=== PATIENT | female | born 1935 | race Caucasian/White ===

== ENCOUNTER 2020-03-21 10:03 | Day surgery (SDC) | payer MEDICARE, OTHER ==
[~2020-03-21] VITALS: Ht 165.1 cm; Wt 52.5 kg
[2020-03-21] VITALS (7 sets, daily range): BP systolic 132–167; BP diastolic 64–95
[2020-03-21] MEDS ORDERED: normal saline 1,000 ML IV SCH (10:35)
[2020-03-21] MEDS ORDERED: diphenhydrAMINE 25mg capsule PO PRN (10:35)
[2020-03-21 10:57] LABS: BASOPHILS % (AUTO) 0.7 % (0-1); EOSINOPHILS # (AUTO) 0.1 X10'3 (0-0.9); EOSINOPHILS % (AUTO) 1.1 % (0-6); HEMATOCRIT 39.7 % (35.0-45.0); HEMOGLOBIN 13.1 g/dl (12.0-16.0); LYMPHOCYTES % (AUTO) 35.2 % (21-51); MEAN CORPUSCULAR HEMOGLOBIN 31.6 PG (27.0-31.0); MEAN CORPUSCULAR HGB CONC 32.9 g/dL (33.0-36.5); MEAN CORPUSCULAR VOLUME 96.2 FL (78-98); MEAN PLATELET VOLUME 8.8 FL (7.4-10.4); MONOCYTES # (AUTO) 0.7 X10'3 (0-0.9); MONOCYTES % (AUTO) 11.8 % (2-12); NEUTROPHILS # (AUTO) 2.9 X10'3 (1.8-7.7); NEUTROPHILS % (AUTO) 51.2 % (42-75); PLATELET COUNT 232 X10'3 (140-440); RED BLOOD COUNT 4.13 X10'6 (4.20-5.60); RED CELL DISTRIBUTION WIDTH 13.1 % (11.5-14.5); WHITE BLOOD COUNT 5.7 X10'3 (4.5-11.0)
[2020-03-21 11:10] LABS: ANION GAP 9 (8-16); BLOOD UREA NITROGEN 13 MG/DL (7-18); BUN/CREATININE RATIO 12.4 (6.6-38.0); CALCIUM 9.1 MG/DL (8.5-10.1); CHLORIDE 104 MMOL/L (99-107); CREATININE 1.05 MG/DL (0.40-0.90); GLUCOSE 93 MG/DL (70-104); MAGNESIUM 1.7 MG/DL (1.5-2.4); SODIUM 142 MMOL/L (135-145); TOTAL CARBON DIOXIDE 28.8 MMOL/L (24-32); eGFR 50 ML/MIN
[2020-03-21] MEDS ORDERED: FAMO40TA73 PO (11:18)
[2020-03-21] MEDS ORDERED: FLUT50BL NAS (11:18)
[2020-03-21] MEDS ORDERED: BUDE10.2 INH (11:18)
[2020-03-21] MEDS ORDERED: WARF1TAB2 PO (11:18)
[2020-03-21] MEDS ORDERED: LISI-600 PO (11:18)
[2020-03-21] MEDS ORDERED: KEN0.1O TP (11:18)
[2020-03-21] MEDS ORDERED: FLEC50TA28 PO (11:18)
[2020-03-21] MEDS ORDERED: POTA10TA19 PO (11:18)
[2020-03-21] MEDS ORDERED: ATOR40TA PO (11:18)
[2020-03-21] MEDS ORDERED: ATOR40TA7 PO (11:18)
[2020-03-21] MEDS ORDERED: midazolam 2 mg/2 ml injection ONE (11:32)
[2020-03-21] MEDS ORDERED: LIDOcaine 1% W/epiNEPHrine 1:100,000 20ml vial ONE (11:33)
[2020-03-21] MEDS ORDERED: ceFAZolin 1000mg inj ONE (11:33)
[2020-03-21] MEDS ORDERED: vancomycin 1,000mg inj ONE (11:33)
[2020-03-21] MEDS ORDERED: fentaNYL/PF 50MCG/1 ML 2ML syringe ONE (11:33)
[2020-03-21] MEDS ORDERED: diphenhydrAMINE 50 mg/ml inj ONE (12:50)
== END 2020-03-21 15:20 | disposition home or self-care (01) ==
LOC: SSTAY O 10:03
PROVIDERS: ATTEND Internal Medicine Cardiovascular Disease
DX: T82.120A Displacement of cardiac electrode, initial encounter (principal); I48.0 Paroxysmal atrial fibrillation; I49.5 Sick sinus syndrome; I10 Essential (primary) hypertension; E78.5 Hyperlipidemia, unspecified; K21.9 Gastro-esophageal reflux disease without esophagitis; F34.1 Dysthymic disorder; J44.9 Chronic obstructive pulmonary disease, unspecified; F32.9 Major depressive disorder, single episode, unspecified; Z88.2 Allergy status to sulfonamides; Z88.8 Allergy status to other drugs, medicaments and biological substances; Z87.891 Personal history of nicotine dependence; Z98.890 Other specified postprocedural states; Z85.3 Personal history of malignant neoplasm of breast; Z79.899 Other long term (current) drug therapy; Y83.8 Other surgical procedures as the cause of abnormal reaction of the patient, or of later complication, without mention of misadventure at the time of the procedure; Y92.89 Other specified places as the place of occurrence of the external cause
CPT/HCPCS: 33222; 36415; 80048; 83735; 85025; 85610; 93005; 99152; 99153; J0690; J1200; J2250; J3010; J3370; J7030; J7050; Q0163; A4620

== ENCOUNTER 2020-03-24 10:00 | Emergency (ER) | payer MEDICARE, OTHER ==
[~2020-03-24] VITALS: Ht 165.1 cm; Wt 52.3 kg
[~2020-03-24 10:00] MED LIST: ATOR40TA PO; ATOR40TA7 PO; BUDE10.2 INH; FAMO40TA73 PO; FLEC50TA28 PO; FLUT50BL NAS; KEN0.1O TP; LISI-600 PO; POTA10TA19 PO; WARF1TAB2 PO
[2020-03-24] MEDS ORDERED: ondansetron/PF 4mg/2ml inj IV ONE (11:35)
[2020-03-24] MEDS ORDERED: morphine 4 MG/ML inj SYRINge IV PRN (11:35)
[2020-03-24] MEDS ORDERED: normal saline 1000ML IV soln IVB ONE (11:35)
[2020-03-24 12:21] LABS: BASOPHILS % (AUTO) 0.3 % (0-1); EOSINOPHILS % (AUTO) 0.3 % (0-6); HEMATOCRIT 37.4 % (35.0-45.0); HEMOGLOBIN 12.5 g/dl (12.0-16.0); LYMPHOCYTES # (AUTO) 1.2 X10'3 (1.1-4.8); LYMPHOCYTES % (AUTO) 13.5 % (21-51); MEAN CORPUSCULAR HGB CONC 33.3 g/dL (33.0-36.5); MONOCYTES # (AUTO) 1.3 X10'3 (0-0.9); NEUTROPHILS # (AUTO) 6.6 X10'3 (1.8-7.7); NEUTROPHILS % (AUTO) 71.9 % (42-75); PLATELET COUNT 223 X10'3 (140-440); RED CELL DISTRIBUTION WIDTH 12.7 % (11.5-14.5); WHITE BLOOD COUNT 9.2 X10'3 (4.5-11.0)
[2020-03-24 12:41] LABS: ALANINE AMINOTRANSFERASE 26 U/L (12-78); ALBUMIN 3.5 G/DL (3.4-5.0); ALBUMIN/GLOBULIN RATIO 0.9 (1.1-1.5); ALKALINE PHOSPHATASE 61 IU/L (46-116); ANION GAP 8 (8-16); ASPARTATE AMINO TRANSFERASE 31 U/L (10-37); BILIRUBIN,TOTAL 2.4 MG/DL (0.1-1.0); BLOOD UREA NITROGEN 9 MG/DL (7-18); BUN/CREATININE RATIO 12.7 (6.6-38.0); CALCIUM 8.8 MG/DL (8.5-10.1); CHLORIDE 102 MMOL/L (99-107); CREATININE 0.71 MG/DL (0.40-0.90); GLUCOSE 93 MG/DL (70-104); POTASSIUM 3.1 MMOL/L (3.5-5.1); SODIUM 140 MMOL/L (135-145); TOTAL CARBON DIOXIDE 29.6 MMOL/L (24-32); TOTAL PROTEIN 7.3 G/DL (6.4-8.2); eGFR 78 ML/MIN
[2020-03-24] MEDS ORDERED: OXYC-145 PO (13:42)
[2020-03-24 14:32] VITALS: BP 162/88
== END 2020-03-24 14:37 | disposition home or self-care (01) ==
LOC: ER 10:00
DX: G89.18 Other acute postprocedural pain (principal); M54.2 Cervicalgia; Z95.0 Presence of cardiac pacemaker; Z88.2 Allergy status to sulfonamides; Z88.5 Allergy status to narcotic agent; Z79.01 Long term (current) use of anticoagulants; Z79.899 Other long term (current) drug therapy
CPT/HCPCS: 36415; 70490; 71045; 71250; 80053; 83880; 84484; 84550; 85025; 93005; 96374; 96375; 99285; J2270; J2405; J7030

== ENCOUNTER 2020-06-25 12:02 | Emergency (ER) | payer MEDICARE, OTHER ==
[~2020-06-25] VITALS: Ht 165.1 cm; Wt 50.0 kg
[~2020-06-25 12:02] MED LIST changes: +OXYC-145 PO
[2020-06-25] MEDS ORDERED: AMOX500C2 PO (13:03)
[2020-06-25 13:30] VITALS: BP 176/85
== END 2020-06-25 13:32 | disposition home or self-care (01) ==
LOC: ER 12:03
DX: K08.89 Other specified disorders of teeth and supporting structures (principal); R68.84 Jaw pain; Z95.0 Presence of cardiac pacemaker; Z88.2 Allergy status to sulfonamides; Z79.899 Other long term (current) drug therapy
CPT/HCPCS: 99283

== ENCOUNTER 2020-08-16 06:15 | Outpatient (CLI) | payer MEDICARE, OTHER | END 2020-08-16 23:59 | disposition home or self-care (01) | LOC: RT 06:15 | PROVIDERS: ATTEND Internal Medicine Critical Care Medicine | DX: J44.9 Chronic obstructive pulmonary disease, unspecified (principal) | CPT/HCPCS: 94618 ==

== ENCOUNTER 2022-02-06 01:43 | Inpatient (IN) | payer MEDICARE, OTHER ==
[~2022-02-06] VITALS: Ht 170.2 cm; Wt 70.5 kg
[~2022-02-06 01:43] MED LIST changes: -LISI-600 PO; +LISI20TA28 PO; +POTA-192 PO; -POTA10TA19 PO
[2022-02-06 02:50] LABS: BASOPHILS # (AUTO) 0.1 X10'3 (0-0.2); BASOPHILS % (AUTO) 0.5 % (0-1); EOSINOPHILS # (AUTO) 0.1 X10'3 (0-0.9); HEMATOCRIT 37.5 % (35.0-45.0); HEMOGLOBIN 12.5 g/dl (12.0-16.0); LYMPHOCYTES # (AUTO) 1.3 X10'3 (1.1-4.8); LYMPHOCYTES % (AUTO) 12.9 % (21-51); MEAN CORPUSCULAR HGB CONC 33.4 g/dL (33.0-36.5); MEAN CORPUSCULAR VOLUME 95.7 FL (78-98); MEAN PLATELET VOLUME 8.6 FL (7.4-10.4); MONOCYTES % (AUTO) 10.4 % (2-12); NEUTROPHILS # (AUTO) 7.6 X10'3 (1.8-7.7); NEUTROPHILS % (AUTO) 75.2 % (42-75); PLATELET COUNT 237 X10'3 (140-440); RED BLOOD COUNT 3.92 X10'6 (4.20-5.60); WHITE BLOOD COUNT 10.1 X10'3 (4.5-11.0)
[2022-02-06 03:04] LABS: ALANINE AMINOTRANSFERASE 35 U/L (12-78); ALBUMIN 3.7 G/DL (3.4-5.0); ALKALINE PHOSPHATASE 62 IU/L (46-116); ANION GAP 8 (8-16); ASPARTATE AMINO TRANSFERASE 27 U/L (10-37); BLOOD UREA NITROGEN 13 MG/DL (7-18); BUN/CREATININE RATIO 16.5 (6.6-38.0); CALCIUM 9.4 MG/DL (8.5-10.1); CHLORIDE 101 MMOL/L (99-107); CREATININE 0.79 MG/DL (0.40-0.90); GLUCOSE 91 MG/DL (70-104); POTASSIUM 3.3 MMOL/L (3.5-5.1); SODIUM 137 MMOL/L (135-145); TOTAL CARBON DIOXIDE 27.6 MMOL/L (24-32); TOTAL PROTEIN 7.3 G/DL (6.4-8.2); eGFR 69 ML/MIN
[2022-02-06] MEDS ORDERED: ondansetron 4mg rapidly disintigrating tab PO ONE (03:05)
--- NOTE | 2022-02-06 03:08 | NUR ---
PT STATED SHE FEELS NAUSEOUS. INFORMED, AWAITING ORDERS
[2022-02-06 03:09] LABS: LIPASE 103 U/L (73-393)
--- NOTE | 2022-02-06 03:09 | NUR ---
PO MED GIVEN
[2022-02-06] MEDS ORDERED: IODIXANOL 320 MG/ML INFUS..BTL 100ML IV ONE (08:16)
[2022-02-06 08:39] LABS: CLARITY,URINE CLEAR (Clear); COLOR,URINE YELLOW (Yellow); GLUCOSE, URINE NEGATIVE (Neg); KETONES,URINE NEGATIVE (Neg); LEUKOCYTE ESTERASE ,URINE NEGATIVE (Neg); NITRITES, URINE NEGATIVE (Neg); OCCULT BLOOD,URINE NEGATIVE (Neg); PROTEIN,URINE NEGATIVE (Neg); UROBILINOGEN,URINE 0.2 E.U/dL (0.2-1.0)
[2022-02-06 08:44] LABS: UA COLLECTION TYPE CLN CATCH MIDSTREAM
--- NOTE | 2022-02-06 09:19 | NUR ---
patient received in bed [address] patient asleep at this time,call light within reach.
--- NOTE | 2022-02-06 14:20 | NUR ---
Paged Dr. dhaliwal bp high 192/78 hr 92.pt asymptomatic.
[2022-02-06] MEDS ORDERED: bisacodyl 10mg suppository rectal RC PRN (14:25)
[2022-02-06] MEDS ORDERED: acetaminophen 650mg rectal suppository RC PRN (14:25)
[2022-02-06] MEDS ORDERED: magnesium Cl slow-release 64mg tablet PO PRN (14:25)
[2022-02-06] MEDS ORDERED: morphine 2 MG/ML inj. syringe IV PRN (14:25)
[2022-02-06] MEDS ORDERED: POTASSIUM BICARB 20meq eff tab 20 MEQ TABLET.EFF PO PRN ×2 (14:25)
[2022-02-06] MEDS ORDERED: diphenhydrAMINE 25mg capsule PO PRN (14:25)
[2022-02-06] MEDS ORDERED: magnesium hydroxide 30ml (MOM) UD suspension PO PRN (14:25)
[2022-02-06] MEDS ORDERED: mag hydrox/Alum hydrox/simeth 30ml oral suspension PO PRN (14:25)
[2022-02-06] MEDS ORDERED: magnesium 4gm in 100ml NS 100 ML IV PRN (14:25)
[2022-02-06] MEDS ORDERED: ondansetron/PF 4mg/2ml inj IV PRN (14:25)
[2022-02-06] MEDS ORDERED: acetaminophen 325mg tablet PO PRN ×2 (14:25)
[2022-02-06] MEDS ORDERED: magnesium 2GM in 50ml NS 50 ML IV PRN (14:25)
[2022-02-06] MEDS ORDERED: potassium CL 10mEq/100ml bag 100 ML IV PRN (14:25)
[2022-02-06] MEDS ORDERED: hydrALAZINE 20mg/ml inj. IV ONE (14:35)
[2022-02-06] MEDS ORDERED: hydrALAZINE 20mg/ml inj. IV PRN (14:35)
[2022-02-06] MEDS: pantoprazole 40MG/NS 100ML BAG 100 ML IV SCH ×2 (14:48→20:53)
[2022-02-06] MEDS: normal saline 1000ml 1,000 ML IV SCH (14:48)
[2022-02-06 15:07] LABS: HEMOGLOBIN A1C 5.3 % (4.5-6.2)
[2022-02-06] MEDS ORDERED: APIX2.5T PO (15:22)
[2022-02-06] MEDS: cefTRIAXone 1g/NS 100ml IVPB 100 ML IV SCH (16:19)
[2022-02-06] MEDS: metroNIDAZOLE-Flagyl 500mg/NS 100 ML IV SCH (17:00)
[2022-02-06] MEDS ORDERED: mineral oil 133ml enema RC ONE (17:05)
--- NOTE | 2022-02-06 17:05 | NUR ---
visitor at bedside.
--- NOTE | 2022-02-06 19:20 | NUR ---
paged rt. for tx.
[2022-02-06] MEDS ORDERED: heparin, porcine 5000 units/ml vial SQ SCH (20:00)
[2022-02-06] MEDS ORDERED: non-formulary drug (Budesonide/Formoterol Fumarate (Symbicort 160-4.5 Mcg Inhaler) 2 PUFFS INH SCH (20:00)
[2022-02-06] MEDS: K and/or MAG REPLACEMENT MC SCH (20:00)
[2022-02-06] MEDS: budesonide 0.5mg/2ml UD nebule IH SCH (20:39)
[2022-02-06] MEDS: ipratropium/albuterol 3ml nebule NEB SCH ×2 (20:39→23:28)
[2022-02-06] MEDS: polyethylene glycol 3350 17gm powd pack PO SCH (20:53)
[2022-02-06] MEDS: docusate sod 100mg capsule PO SCH (20:53)
[2022-02-06] MEDS: apixaban 5mg tablet PO SCH (20:54)
[2022-02-06] MEDS: flecainide 50mg tablet PO SCH (20:57)
--- NOTE | 2022-02-06 21:10 | NUR ---
UPON CHECKING PT AND HER VITALS FOUND PT IN SVT AT A RATE OF 145. PT DENIES ANY CP, SOB, DIZZINESS OR ANY OTHER FACTORS. EKG TO BE PERFORMED. DR MCCALL PAGED WITH DETAILS.
--- NOTE | 2022-02-06 21:22 | NUR ---
EKG DONE, SHOWN TO DR PRIDE. PT PUT ON 2L NC. VAGAL MANEUVERS PERFORMED WITH NO EKG CHANGES.
--- NOTE | 2022-02-06 21:58 | NUR ---
PAGED DR MCCALL MULTIPLE TIMES, AWAITING CALL BACK. PT HR 135. PT IN NO SIGN OF DISTRESS AT THIS TIME.
--- NOTE | 2022-02-06 22:08 | NUR ---
PT CONVERTED FROM SVT TO NORMAL SINUS RYTHM WITHOUT INTERVENTION
--- NOTE | 2022-02-06 22:09 | NUR ---
PAGED DR MCCALL AGAIN TO NOTIFY OF PT SYMPTOMS AND RYTHM CHANGE. REPEAT EKG BEING PERFORMED
--- NOTE | 2022-02-06 22:10 | NUR ---
AWAITING RESPONSE FROM RUSU REGARDING FIRST PAGES
[2022-02-07] MEDS: metroNIDAZOLE-Flagyl 500mg/NS 100 ML IV SCH ×3 (00:27→16:19)
[2022-02-07] MEDS: normal saline 1000ml 1,000 ML IV SCH ×3 (01:06→21:24)
[2022-02-07 01:19] LABS: BASOPHILS % (AUTO) 0.5 % (0-1); EOSINOPHILS % (AUTO) 0.1 % (0-6); HEMATOCRIT 36.8 % (35.0-45.0); HEMOGLOBIN 12.2 g/dl (12.0-16.0); LYMPHOCYTES # (AUTO) 1.4 X10'3 (1.1-4.8); LYMPHOCYTES % (AUTO) 14.4 % (21-51); MEAN CORPUSCULAR HEMOGLOBIN 32.3 PG (27.0-31.0); MEAN CORPUSCULAR HGB CONC 33.1 g/dL (33.0-36.5); MEAN CORPUSCULAR VOLUME 97.6 FL (78-98); MEAN PLATELET VOLUME 8.3 FL (7.4-10.4); NEUTROPHILS # (AUTO) 7.4 X10'3 (1.8-7.7); PLATELET COUNT 221 X10'3 (140-440); RED BLOOD COUNT 3.77 X10'6 (4.20-5.60); RED CELL DISTRIBUTION WIDTH 13.4 % (11.5-14.5); WHITE BLOOD COUNT 9.8 X10'3 (4.5-11.0)
[2022-02-07 01:37] LABS: ALANINE AMINOTRANSFERASE 22 U/L (12-78); ALBUMIN 3.2 G/DL (3.4-5.0); ALKALINE PHOSPHATASE 58 IU/L (46-116); ANION GAP 7 (8-16); ASPARTATE AMINO TRANSFERASE 16 U/L (10-37); BILIRUBIN,TOTAL 1.8 MG/DL (0.1-1.0); BLOOD UREA NITROGEN 13 MG/DL (7-18); BUN/CREATININE RATIO 15.3 (6.6-38.0); CALCIUM 8.3 MG/DL (8.5-10.1); CHLORIDE 105 MMOL/L (99-107); CHOL/HDL RATIO 2.2 (0.00-4.99); CHOLESTEROL 157 MG/DL (0-200); CREATININE 0.85 MG/DL (0.40-0.90); GLUCOSE 108 MG/DL (70-104); HDL CHOLESTEROL 72 MG/DL (35-60); LDL CHOLESTEROL 64 MG/DL (50-100); MAGNESIUM 1.7 MG/DL (1.5-2.4); PHOSPHORUS 3.5 MG/DL (2.3-4.5); POTASSIUM 3.8 MMOL/L (3.5-5.1); SODIUM 140 MMOL/L (135-145); TOTAL CARBON DIOXIDE 27.8 MMOL/L (24-32); TOTAL PROTEIN 6.4 G/DL (6.4-8.2); TRIGLYCERIDES 73 MG/DL (20-135); eGFR 63 ML/MIN
--- NOTE | 2022-02-07 03:16 | NUR ---
paged rt. for scheduled breathing tx.
[2022-02-07] MEDS: ipratropium/albuterol 3ml nebule NEB SCH ×6 (03:28→23:26)
[2022-02-07] MEDS: budesonide 0.5mg/2ml UD nebule IH SCH ×2 (06:53→18:50)
[2022-02-07] MEDS: docusate sod 100mg capsule PO SCH ×2 (08:00→21:32)
[2022-02-07] MEDS: lisinopril 20mg tablet PO SCH (08:00)
[2022-02-07] MEDS: K and/or MAG REPLACEMENT MC SCH ×2 (08:00→20:00)
[2022-02-07] MEDS: pantoprazole 40MG/NS 100ML BAG 100 ML IV SCH ×2 (08:17→21:52)
[2022-02-07] MEDS: apixaban 5mg tablet PO SCH ×2 (08:17→21:32)
[2022-02-07] MEDS: atorvastatin 20mg tablet PO SCH (08:19)
[2022-02-07] MEDS: flecainide 50mg tablet PO SCH ×2 (08:46→22:02)
--- NOTE | 2022-02-07 10:22 | NUR ---
patient moved to hospital bed, made comfortable.
[2022-02-07] MEDS: cefTRIAXone 1g/NS 100ml IVPB 100 ML IV SCH (10:59)
[2022-02-07] MEDS: morphine 2 MG/ML inj. syringe IV PRN (10:59)
[2022-02-07] MEDS ORDERED: ondansetron 4mg rapidly disintigrating tab PO PRN (11:10)
[2022-02-07] MEDS ORDERED: FAMO20TA8 PO (13:39)
--- NOTE | 2022-02-07 20:45 | NUR ---
report received from ANALY Marques.patient arrived in hospital bed, in no apparent distress. ALOx4, with two bags of belongings.
[2022-02-07] MEDS: polyethylene glycol 3350 17gm powd pack PO SCH (21:32)
[2022-02-07 23:00] VITALS: BP 152/56
[2022-02-08] MEDS: metroNIDAZOLE-Flagyl 500mg/NS 100 ML IV SCH ×3 (00:09→16:15)
[2022-02-08] MEDS: ipratropium/albuterol 3ml nebule NEB SCH ×6 (03:12→23:46)
[2022-02-08] MEDS: morphine 2 MG/ML inj. syringe IV PRN (05:34)
[2022-02-08 06:13] LABS: BASOPHILS % (AUTO) 0.3 % (0-1); EOSINOPHILS % (AUTO) 0.5 % (0-6); HEMATOCRIT 30.6 % (35.0-45.0); HEMOGLOBIN 10.3 g/dl (12.0-16.0); LYMPHOCYTES # (AUTO) 1.1 X10'3 (1.1-4.8); LYMPHOCYTES % (AUTO) 13.7 % (21-51); MEAN CORPUSCULAR HEMOGLOBIN 32.7 PG (27.0-31.0); MEAN CORPUSCULAR HGB CONC 33.6 g/dL (33.0-36.5); MEAN CORPUSCULAR VOLUME 97.5 FL (78-98); MEAN PLATELET VOLUME 8.8 FL (7.4-10.4); MONOCYTES # (AUTO) 1.3 X10'3 (0-0.9); MONOCYTES % (AUTO) 16.4 % (2-12); NEUTROPHILS # (AUTO) 5.6 X10'3 (1.8-7.7); NEUTROPHILS % (AUTO) 69.1 % (42-75); PLATELET COUNT 173 X10'3 (140-440); RED BLOOD COUNT 3.14 X10'6 (4.20-5.60); RED CELL DISTRIBUTION WIDTH 13.2 % (11.5-14.5); WHITE BLOOD COUNT 8.1 X10'3 (4.5-11.0)
[2022-02-08 06:25] LABS: ALANINE AMINOTRANSFERASE 19 U/L (12-78); ALBUMIN 2.7 G/DL (3.4-5.0); ALBUMIN/GLOBULIN RATIO 0.9 (1.1-1.5); ALKALINE PHOSPHATASE 44 IU/L (46-116); ANION GAP 5 (8-16); ASPARTATE AMINO TRANSFERASE 15 U/L (10-37); BILIRUBIN,TOTAL 1.7 MG/DL (0.1-1.0); BLOOD UREA NITROGEN 8 MG/DL (7-18); BUN/CREATININE RATIO 10.8 (6.6-38.0); CALCIUM 7.9 MG/DL (8.5-10.1); CHLORIDE 104 MMOL/L (99-107); CREATININE 0.74 MG/DL (0.40-0.90); GLUCOSE 114 MG/DL (70-104); MAGNESIUM 1.6 MG/DL (1.5-2.4); PHOSPHORUS 2.8 MG/DL (2.3-4.5); POTASSIUM 3.5 MMOL/L (3.5-5.1); SODIUM 134 MMOL/L (135-145); TOTAL CARBON DIOXIDE 24.7 MMOL/L (24-32); TOTAL PROTEIN 5.8 G/DL (6.4-8.2); eGFR 74 ML/MIN
[2022-02-08] MEDS: normal saline 1000ml 1,000 ML IV SCH ×2 (06:25→16:25)
--- NOTE | 2022-02-08 06:39 | NUR ---
received report from ANALY Brandon
--- NOTE | 2022-02-08 06:40 | NUR ---
Problems reprioritized. Patient report given, questions answered & plan of care reviewed with ANALY Lowery.
[2022-02-08 06:49] VITALS: BP 138/54
[2022-02-08] MEDS: cefTRIAXone 1g/NS 100ml IVPB 100 ML IV SCH (07:29)
--- NOTE | 2022-02-08 07:42 | NUR ---
Message: [id number], Belle patient is nauseous after working with physical therapy, already gave zofran and patient is still throwing up/nauseous. Can i get reglan or compazine please? rama [id number]
[2022-02-08] MEDS: apixaban 5mg tablet PO SCH ×2 (08:00→20:10)
[2022-02-08] MEDS: atorvastatin 20mg tablet PO SCH (08:00)
[2022-02-08] MEDS: docusate sod 100mg capsule PO SCH ×2 (08:00→20:10)
[2022-02-08] MEDS: flecainide 50mg tablet PO SCH ×2 (08:00→20:10)
[2022-02-08] MEDS: K and/or MAG REPLACEMENT MC SCH ×2 (08:00→20:00)
[2022-02-08] MEDS: lisinopril 20mg tablet PO SCH (08:00)
[2022-02-08 08:23] LABS: TOTAL CELLS COUNTED 100
[2022-02-08 08:24] LABS: PLATELET ESTIMATE NORMAL
[2022-02-08] MEDS ORDERED: metoclopramide 5 mg/ml inj IV PRN (08:25)
[2022-02-08] MEDS: budesonide 0.5mg/2ml UD nebule IH SCH ×2 (08:38→20:00)
--- NOTE | 2022-02-08 08:39 | NUR ---
BID and Q4 SVN TX not given Pt Nauseated
[2022-02-08 10:00] VITALS: BP 164/57
[2022-02-08] MEDS: pantoprazole 40MG/NS 100ML BAG 100 ML IV SCH ×2 (10:33→19:48)
--- NOTE | 2022-02-08 12:04 | NUR ---
pt refused 1100 svn stating she doesn't feel the need for one at this time. no sob observed
[2022-02-08] MEDS: lactose-reduced food (Ensure Enlive) - 237ml bottle PO SCH ×2 (13:00→18:00)
[2022-02-08 15:20] VITALS: BP 150/58
--- NOTE | 2022-02-08 16:37 | NUR ---
Pt refused 1500 meds no SOB or distress noted
--- NOTE | 2022-02-08 17:23 | NUR ---
Patient refused 1800 vital signs
--- NOTE | 2022-02-08 17:23 | NUR ---
Message: [id number], Belle patient is still very painful in her ankle and knee, morphine was ineffective this AM and made her nauseous. Can I get tramadol maybe or something stronger than Tylenol? has allergy to [place] thanks rama [id number]
[2022-02-08] MEDS: traMADol 50MG tablet PO PRN (17:55)
--- NOTE | 2022-02-08 18:18 | NUR ---
Gave report to ANALY Sherman and TRAVIS Friedman
--- NOTE | 2022-02-08 19:01 | NUR ---
Patient in room ORTHO 4009. I have received report from ANALY Stiles and had the opportunity to ask questions and assume patient care.
[2022-02-08] MEDS: polyethylene glycol 3350 17gm powd pack PO SCH (21:00)
--- NOTE | 2022-02-08 21:30 | NUR ---
Pt.HR was 150 on VS 4h check.PCT came and told me.I called Dr. Alaniz to notified him,he gave me a order for Cardizem push 10 mg ,[place] place,NS bolus of 250ml and TELE monitor.My charge nurse called Tele nurse to come and do the Cardizem push.We will keep close monitor on the pt.
[2022-02-08] MEDS ORDERED: normal saline 250ml IV soln 250 ML IV ONE (21:50)
[2022-02-08] MEDS ORDERED: diltiazem 5mg/ml 5ml inj. IV ONE (21:50)
[2022-02-08 22:00] VITALS: BP 148/66
[2022-02-08 22:25] VITALS: BP 131/61
[2022-02-08 22:39] VITALS: BP 126/71
[2022-02-09] VITALS (13 sets, daily range): BP systolic 89–140; BP diastolic 44–66
[2022-02-09] MEDS: metroNIDAZOLE-Flagyl 500mg/NS 100 ML IV SCH ×3 (00:07→16:00)
--- NOTE | 2022-02-09 00:43 | NUR ---
Dr. Alaniz was notified for her HR of 124 after Cardizem push 10 mg.He gave me a order for transfer.My charge nurse was notified for transfer to PCU.
--- NOTE | 2022-02-09 01:45 | NUR ---
Problems reprioritized. Patient report given, questions answered & plan of care reviewed with ANALY Fonseca.
--- NOTE | 2022-02-09 02:10 | NUR ---
Assignment was given ,pt, was transfer to U room 3010.
[2022-02-09] MEDS: normal saline 1000ml 1,000 ML IV SCH ×3 (02:33→20:13)
[2022-02-09] MEDS: diltiazem-NS 100mg/100ml 100 ML IV SCH ×2 (02:59→17:30)
[2022-02-09] MEDS: ipratropium/albuterol 3ml nebule NEB SCH ×6 (03:00→23:07)
[2022-02-09 06:35] LABS: BASOPHILS % (AUTO) 0.3 % (0-1); EOSINOPHILS # (AUTO) 0.1 X10'3 (0-0.9); EOSINOPHILS % (AUTO) 0.7 % (0-6); HEMOGLOBIN 10.5 g/dl (12.0-16.0); MEAN CORPUSCULAR HEMOGLOBIN 32.9 PG (27.0-31.0); MEAN CORPUSCULAR HGB CONC 33.8 g/dL (33.0-36.5); MEAN CORPUSCULAR VOLUME 97.3 FL (78-98); MEAN PLATELET VOLUME 8.8 FL (7.4-10.4); MONOCYTES # (AUTO) 1.3 X10'3 (0-0.9); MONOCYTES % (AUTO) 12.9 % (2-12); NEUTROPHILS # (AUTO) 7.5 X10'3 (1.8-7.7); NEUTROPHILS % (AUTO) 76.1 % (42-75); PLATELET COUNT 183 X10'3 (140-440); RED BLOOD COUNT 3.19 X10'6 (4.20-5.60); RED CELL DISTRIBUTION WIDTH 12.9 % (11.5-14.5); WHITE BLOOD COUNT 9.9 X10'3 (4.5-11.0)
[2022-02-09 06:52] LABS: ALANINE AMINOTRANSFERASE 20 U/L (12-78); ALBUMIN 2.4 G/DL (3.4-5.0); ALBUMIN/GLOBULIN RATIO 0.7 (1.1-1.5); ALKALINE PHOSPHATASE 47 IU/L (46-116); ANION GAP 6 (8-16); ASPARTATE AMINO TRANSFERASE 18 U/L (10-37); BILIRUBIN,TOTAL 1.3 MG/DL (0.1-1.0); BLOOD UREA NITROGEN 5 MG/DL (7-18); BUN/CREATININE RATIO 7.9 (6.6-38.0); CALCIUM 7.7 MG/DL (8.5-10.1); CHLORIDE 100 MMOL/L (99-107); CREATININE 0.63 MG/DL (0.40-0.90); GLUCOSE 105 MG/DL (70-104); MAGNESIUM 1.4 MG/DL (1.5-2.4); SODIUM 134 MMOL/L (135-145); TOTAL CARBON DIOXIDE 27.7 MMOL/L (24-32); TOTAL PROTEIN 5.8 G/DL (6.4-8.2); eGFR 89 ML/MIN
[2022-02-09 06:59] LABS: POTASSIUM 2.5 MMOL/L (3.5-5.1)
--- NOTE | 2022-02-09 07:02 | NUR ---
Patient in room PCU 3010. I have received report from Marian and had the opportunity to ask questions and assume patient care.
[2022-02-09] MEDS ORDERED: mineral oil 133ml enema RC ONE (08:00)
[2022-02-09] MEDS: cefTRIAXone 1g/NS 100ml IVPB 100 ML IV SCH (08:00)
[2022-02-09] MEDS: pantoprazole 40MG/NS 100ML BAG 100 ML IV SCH ×2 (08:00→19:01)
[2022-02-09] MEDS: docusate sod 100mg capsule PO SCH ×2 (08:19→19:02)
[2022-02-09] MEDS: apixaban 5mg tablet PO SCH ×2 (08:19→19:01)
[2022-02-09] MEDS: flecainide 50mg tablet PO SCH ×2 (08:19→19:01)
[2022-02-09] MEDS: atorvastatin 20mg tablet PO SCH (08:19)
[2022-02-09] MEDS: lisinopril 20mg tablet PO SCH (08:20)
[2022-02-09] MEDS: lactose-reduced food (Ensure Enlive) - 237ml bottle PO SCH ×3 (08:21→18:00)
[2022-02-09] MEDS: K and/or MAG REPLACEMENT MC SCH ×2 (08:21→20:56)
[2022-02-09] MEDS: budesonide 0.5mg/2ml UD nebule IH SCH ×2 (11:00→19:23)
[2022-02-09] MEDS: traMADol 50MG tablet PO PRN (19:01)
[2022-02-09] MEDS ORDERED: POTASSIUM BICARB 20meq eff tab 20 MEQ TABLET.EFF PO PRN ×2 (20:10→20:30)
[2022-02-09] MEDS: polyethylene glycol 3350 17gm powd pack PO SCH (20:13)
[2022-02-09] MEDS ORDERED: magnesium 4gm in 100ml NS 100 ML IV PRN (20:30)
[2022-02-09] MEDS ORDERED: magnesium 2GM in 50ml NS 50 ML IV PRN (20:30)
[2022-02-09] MEDS ORDERED: potassium CL 10mEq/100ml bag 100 ML IV PRN (20:30)
[2022-02-09] MEDS ORDERED: magnesium Cl slow-release 64mg tablet PO PRN (20:30)
[2022-02-09] MEDS: POTASSIUM BICARB 20meq eff tab 20 MEQ TABLET.EFF PO PRN (21:00)
[2022-02-10] VITALS (7 sets, daily range): BP systolic 103–143; BP diastolic 49–90
[2022-02-10] MEDS: metroNIDAZOLE-Flagyl 500mg/NS 100 ML IV SCH ×3 (00:07→16:00)
[2022-02-10] MEDS: POTASSIUM BICARB 20meq eff tab 20 MEQ TABLET.EFF PO PRN (00:42)
[2022-02-10] MEDS: ipratropium/albuterol 3ml nebule NEB SCH ×6 (02:46→23:09)
--- NOTE | 2022-02-10 04:49 | NUR ---
patient alert and oriented x4, pain controlled with PRN tramadol. [place] draining well, and patient able to get on and off bedpan, states she had several BMs after enema and refused night time stool softeners. Patient was hypotensive around 2100, no s/s, paged Dr Alaniz and received order to hold Cardizem drip and watch HR. Patient BP now normotensive and HR remaining in 90's, afib, v paced. Otherwise patient had an uneventful night, resting comfortable, no s/s pain or distress. Patient son Anshu called and stated when he talked with patient she expressed her wishes to no longer be a DNR but a full code. RN spoke with patient and asked her if she wanted her code status changed and patient stated yes. Dr Alaniz paged and informed this as well, no new orders for code change entered but RN removed DNR band and informed charge nurse. Will endorse to day shift nurse to be addressed by day shift doctor.
[2022-02-10 06:33] LABS: BASOPHILS % (AUTO) 0.2 % (0-1); EOSINOPHILS # (AUTO) 0.1 X10'3 (0-0.9); EOSINOPHILS % (AUTO) 0.8 % (0-6); HEMATOCRIT 26.9 % (35.0-45.0); HEMOGLOBIN 9.2 g/dl (12.0-16.0); LYMPHOCYTES # (AUTO) 0.7 X10'3 (1.1-4.8); LYMPHOCYTES % (AUTO) 9.5 % (21-51); MEAN CORPUSCULAR HEMOGLOBIN 33.1 PG (27.0-31.0); MEAN CORPUSCULAR HGB CONC 34.3 g/dL (33.0-36.5); MEAN CORPUSCULAR VOLUME 96.5 FL (78-98); MEAN PLATELET VOLUME 9.1 FL (7.4-10.4); MONOCYTES # (AUTO) 0.9 X10'3 (0-0.9); MONOCYTES % (AUTO) 13.5 % (2-12); NEUTROPHILS # (AUTO) 5.2 X10'3 (1.8-7.7); PLATELET COUNT 174 X10'3 (140-440); RED BLOOD COUNT 2.79 X10'6 (4.20-5.60); RED CELL DISTRIBUTION WIDTH 12.9 % (11.5-14.5); WHITE BLOOD COUNT 6.9 X10'3 (4.5-11.0)
[2022-02-10 07:14] LABS: ALANINE AMINOTRANSFERASE 25 U/L (12-78); ALBUMIN/GLOBULIN RATIO 0.6 (1.1-1.5); ALKALINE PHOSPHATASE 45 IU/L (46-116); ANION GAP 5 (8-16); ASPARTATE AMINO TRANSFERASE 28 U/L (10-37); BILIRUBIN,TOTAL 0.7 MG/DL (0.1-1.0); BLOOD UREA NITROGEN 6 MG/DL (7-18); BUN/CREATININE RATIO 10.3 (6.6-38.0); CALCIUM 7.7 MG/DL (8.5-10.1); CHLORIDE 102 MMOL/L (99-107); CREATININE 0.58 MG/DL (0.40-0.90); GLUCOSE 102 MG/DL (70-104); MAGNESIUM 1.6 MG/DL (1.5-2.4); PHOSPHORUS 1.4 MG/DL (2.3-4.5); POTASSIUM 4.1 MMOL/L (3.5-5.1); SODIUM 135 MMOL/L (135-145); TOTAL CARBON DIOXIDE 27.7 MMOL/L (24-32); TOTAL PROTEIN 5.2 G/DL (6.4-8.2); eGFR > 90 ML/MIN
[2022-02-10] MEDS: budesonide 0.5mg/2ml UD nebule IH SCH ×2 (07:26→19:06)
[2022-02-10] MEDS: docusate sod 100mg capsule PO SCH ×2 (08:00→20:28)
[2022-02-10] MEDS: K and/or MAG REPLACEMENT MC SCH ×3 (08:00→20:00)
[2022-02-10] MEDS: pantoprazole 40MG/NS 100ML BAG 100 ML IV SCH (08:17)
[2022-02-10] MEDS: cefTRIAXone 1g/NS 100ml IVPB 100 ML IV SCH (08:18)
[2022-02-10] MEDS: atorvastatin 20mg tablet PO SCH (08:19)
[2022-02-10] MEDS: flecainide 50mg tablet PO SCH ×2 (08:19→20:28)
[2022-02-10] MEDS: apixaban 5mg tablet PO SCH ×2 (08:19→20:29)
[2022-02-10] MEDS: lisinopril 20mg tablet PO SCH (08:20)
[2022-02-10] MEDS: lactose-reduced food (Ensure Enlive) - 237ml bottle PO SCH ×3 (08:21→18:00)
[2022-02-10] MEDS: normal saline 1000ml 1,000 ML IV SCH (08:25)
[2022-02-10] MEDS ORDERED: iohexol 350MG/ML 100ml bottle IV ONE (09:48)
[2022-02-10] MEDS: metoprolol tartrate 25mg tablet PO SCH ×2 (13:35→17:30)
--- NOTE | 2022-02-10 18:46 | NUR ---
Patient in room PCU 3010. I have received report from Jocelyn BECKFORD and had the opportunity to ask questions and assume patient care.
[2022-02-10] MEDS: traMADol 50MG tablet PO PRN (20:28)
[2022-02-10] MEDS: pantoprazole 40mg Tablet.DR PO SCH (20:28)
[2022-02-10] MEDS: polyethylene glycol 3350 17gm powd pack PO SCH (20:29)
[2022-02-10] MEDS: metroNIDAZOLE 500mg tablet PO SCH (23:02)
[2022-02-11] VITALS (16 sets, daily range): BP systolic 106–149; BP diastolic 65–98
[2022-02-11] MEDS: traMADol 50MG tablet PO PRN ×2 (02:14→20:17)
[2022-02-11] MEDS: ipratropium/albuterol 3ml nebule NEB SCH ×6 (02:56→23:35)
[2022-02-11 06:41] LABS: BASOPHILS # (AUTO) 0.1 X10'3 (0-0.2); BASOPHILS % (AUTO) 1.2 % (0-1); EOSINOPHILS # (AUTO) 0.1 X10'3 (0-0.9); EOSINOPHILS % (AUTO) 2.1 % (0-6); HEMATOCRIT 29.8 % (35.0-45.0); HEMOGLOBIN 9.9 g/dl (12.0-16.0); LYMPHOCYTES % (AUTO) 16.9 % (21-51); MEAN CORPUSCULAR HEMOGLOBIN 32.3 PG (27.0-31.0); MEAN CORPUSCULAR HGB CONC 33.2 g/dL (33.0-36.5); MEAN CORPUSCULAR VOLUME 97.1 FL (78-98); MEAN PLATELET VOLUME 9.6 FL (7.4-10.4); MONOCYTES # (AUTO) 0.9 X10'3 (0-0.9); MONOCYTES % (AUTO) 14.6 % (2-12); NEUTROPHILS # (AUTO) 3.8 X10'3 (1.8-7.7); NEUTROPHILS % (AUTO) 65.2 % (42-75); PLATELET COUNT 240 X10'3 (140-440); RED BLOOD COUNT 3.07 X10'6 (4.20-5.60); RED CELL DISTRIBUTION WIDTH 12.6 % (11.5-14.5); WHITE BLOOD COUNT 5.9 X10'3 (4.5-11.0)
[2022-02-11 06:45] LABS: ALANINE AMINOTRANSFERASE 47 U/L (12-78); ALBUMIN 2.1 G/DL (3.4-5.0); ALBUMIN/GLOBULIN RATIO 0.6 (1.1-1.5); ALKALINE PHOSPHATASE 52 IU/L (46-116); ANION GAP 7 (8-16); ASPARTATE AMINO TRANSFERASE 54 U/L (10-37); BILIRUBIN,TOTAL 0.5 MG/DL (0.1-1.0); BLOOD UREA NITROGEN 10 MG/DL (7-18); BUN/CREATININE RATIO 19.2 (6.6-38.0); CALCIUM 8.1 MG/DL (8.5-10.1); CHLORIDE 102 MMOL/L (99-107); CREATININE 0.52 MG/DL (0.40-0.90); GLUCOSE 88 MG/DL (70-104); MAGNESIUM 1.7 MG/DL (1.5-2.4); PHOSPHORUS 2.4 MG/DL (2.3-4.5); POTASSIUM 3.8 MMOL/L (3.5-5.1); SODIUM 135 MMOL/L (135-145); TOTAL CARBON DIOXIDE 26.4 MMOL/L (24-32); TOTAL PROTEIN 5.4 G/DL (6.4-8.2); eGFR > 90 ML/MIN
[2022-02-11] MEDS: budesonide 0.5mg/2ml UD nebule IH SCH ×2 (07:44→19:41)
[2022-02-11] MEDS: K and/or MAG REPLACEMENT MC SCH ×2 (08:00→20:00)
[2022-02-11] MEDS: lactose-reduced food (Ensure Enlive) - 237ml bottle PO SCH ×3 (08:00→17:54)
--- NOTE | 2022-02-11 08:55 | NUR ---
Initial: Pt admitted w/ acute abdominal pain, most likely from ileitis as well as acute gastritis and gastroesophageal reflux disease per EMR. Currently on heart Healthy diet w/ avg intake 0-25% of meals. Ensure Enlive TID was ordered 02/08 and pt has consumed 50% of those. Overall partially meeting needs. Recommend liberalizing to REGULAR DIET given no significant diet-related cardiac hx in EMR, lipid panel WNL except high HDL, and geriatric age. LBM 02/09 receiving routine bowel care. Will continue to monitor. Recommendations 1. Liberalize to REGULAR DIET given poor PO, lipids mostly WNL, geriatric age 2. Ensure Enlive TID 3. Bowel care per rx 4. Scaled wts Addendum: 02/11/22 at [address] Amended: Links added.
[2022-02-11] MEDS: metoprolol tartrate 25mg tablet PO SCH ×2 (08:57→16:52)
[2022-02-11] MEDS: docusate sod 100mg capsule PO SCH ×2 (09:00→20:15)
[2022-02-11] MEDS: apixaban 5mg tablet PO SCH ×2 (09:01→20:16)
[2022-02-11] MEDS: flecainide 50mg tablet PO SCH ×2 (09:01→20:17)
[2022-02-11] MEDS: pantoprazole 40mg Tablet.DR PO SCH (09:01)
[2022-02-11] MEDS: metroNIDAZOLE 500mg tablet PO SCH ×2 (09:01→16:51)
[2022-02-11] MEDS: atorvastatin 20mg tablet PO SCH (09:01)
[2022-02-11] MEDS: lisinopril 20mg tablet PO SCH (09:01)
[2022-02-11] MEDS: cefTRIAXone 1g/NS 100ml IVPB 100 ML IV SCH (09:28)
[2022-02-11] MEDS: normal saline 1000ml 1,000 ML IV SCH (14:22)
--- NOTE | 2022-02-11 18:00 | NUR ---
REPORT RECEIVED FROM LYDIA BECKFORD-POC AND HISTORY REVIEWED. ACCEPT PATIENT FOR ASSIGNMENT. TIM BECKFORD
[2022-02-11] MEDS: polyethylene glycol 3350 17gm powd pack PO SCH (20:18)
[2022-02-12] VITALS (10 sets, daily range): BP systolic 120–156; BP diastolic 67–102
[2022-02-12] MEDS: ipratropium/albuterol 3ml nebule NEB SCH ×3 (03:43→11:31)
--- NOTE | 2022-02-12 05:09 | NUR ---
AFIB, HR 120-130'S-CARDIZEM IV PUSH 10 MG X1 NOW; IF HR DOESN'T DECREASE BELOW 100, GIVE ONE MORE IV CADIZEM PUSH X1; IF THIS DOES NOT RESOLVE ELEVATED HR, START CARDIZEM GTT PER PROTOCOL PER MD ANDRES. TIM RN
[2022-02-12] MEDS ORDERED: diltiazem 5mg/ml 5ml inj. IV ONE ×2 (05:10→06:55)
[2022-02-12] MEDS ORDERED: pantoprazole 40mg Tablet.DR PO SCH (07:00)
[2022-02-12] MEDS: budesonide 0.5mg/2ml UD nebule IH SCH (07:21)
[2022-02-12] MEDS: apixaban 5mg tablet PO SCH (07:41)
[2022-02-12] MEDS: flecainide 50mg tablet PO SCH (07:41)
[2022-02-12] MEDS: lisinopril 20mg tablet PO SCH (07:42)
[2022-02-12] MEDS: traMADol 50MG tablet PO PRN (07:42)
[2022-02-12] MEDS: docusate sod 100mg capsule PO SCH (07:43)
[2022-02-12] MEDS: metoprolol tartrate 25mg tablet PO SCH (07:43)
[2022-02-12] MEDS: atorvastatin 20mg tablet PO SCH (07:43)
[2022-02-12] MEDS: K and/or MAG REPLACEMENT MC SCH (07:44)
[2022-02-12] MEDS: lactose-reduced food (Ensure Enlive) - 237ml bottle PO SCH ×2 (07:44→13:00)
--- NOTE | 2022-02-12 08:10 | NUR ---
Gave report to ANALY Ferrer who thankfully came in on her day off. Pt. sitting up in room in recliner eating breakfast.
[2022-02-12] MEDS ORDERED: LOP25T PO (12:10)
--- NOTE | 2022-02-12 13:29 | NUR ---
Paged Dr. Melton letting him know the results of the pacer interrogation are complete. [id number], Belle Joyner. Pts pacer interrogation is finished and report is in the chart. Carissa [facility] [id number].
--- NOTE | 2022-02-12 14:32 | NUR ---
Paged Dr. Melton regarding whether I should proceed with the discharge following the pacer interrogation. PAGER ID: [phone] MESSAGE: [id number], Belle Joyner. Would you like me to proceed with the discharge? Carissa [facility] 8425.
--- NOTE | 2022-02-12 15:13 | NUR ---
Paged Dr. Melton needing clarification on whether to discharge. Pt had pacer interrogated and the patient has a dramatic increase in afib and rate is uncontrolled. I am hesitant to discharge pt with this info. PAGER ID: [phone] MESSAGE: [phone], Belle Joyner. I do not feel comfortable discharging the patient until I get the final say for discharge. The results of the interrogation have me hesitant with discharge. Carissa [facility] [id number].
== END 2022-02-12 15:55 | disposition home health service (06) | DRG 391 ==
LOC: ER 01:44 → ED HOLD 14:27 → ORTHO 4S 02-07 20:45 → PCU 3S 02-09 01:59
PROVIDERS: ADMIT Family Medicine; ATTEND Family Medicine
PROC: BW211ZZ Computerized Tomography (CT Scan) of Abdomen and Pelvis using Low Osmolar Contrast (ICD-10-PCS; principal; 2022-02-06)
DX: K58.9 Irritable bowel syndrome, unspecified (principal); I21.A1 Myocardial infarction type 2; K29.00 Acute gastritis without bleeding; Z66 Do not resuscitate; K21.9 Gastro-esophageal reflux disease without esophagitis; I48.91 Unspecified atrial fibrillation; E78.00 Pure hypercholesterolemia, unspecified; E78.5 Hyperlipidemia, unspecified; I25.10 Atherosclerotic heart disease of native coronary artery without angina pectoris; F32.A Depression, unspecified; Z60.2 Problems related to living alone; I11.0 Hypertensive heart disease with heart failure; M25.561 Pain in right knee; J44.9 Chronic obstructive pulmonary disease, unspecified; I50.9 Heart failure, unspecified; Z85.3 Personal history of malignant neoplasm of breast; Z95.810 Presence of automatic (implantable) cardiac defibrillator; Z79.01 Long term (current) use of anticoagulants; Z79.899 Other long term (current) drug therapy; Z80.8 Family history of malignant neoplasm of other organs or systems; Z87.891 Personal history of nicotine dependence; Z90.710 Acquired absence of both cervix and uterus; Z88.2 Allergy status to sulfonamides; Z88.5 Allergy status to narcotic agent
CPT/HCPCS: 36415; 71045; 71275; 73560; 73600; 73700; 74174; 74176; 80053; 80061; 81003; 83036; 83605; 83690; 83735; 84100; 84132; 84145; 84484; 84550; 85007; 85025; 87081; 93005; 94640; 94760; 96374; 97110; 97116; 97161; 97530; 99285; C9113; G0378; J0360; J0696; J2270; J2765; J3490; J7030; J7050; Q9967

== ENCOUNTER 2022-08-31 12:33 | Emergency (ER) | payer MEDICARE, OTHER ==
[~2022-08-31] VITALS: Ht 165.1 cm; Wt 46.0 kg
[~2022-08-31 12:33] MED LIST changes: +APIX2.5T PO; -ATOR40TA7 PO; +FAMO20TA8 PO; -FAMO40TA73 PO; -FLUT50BL NAS; -KEN0.1O TP; +LOP25T PO; -OXYC-145 PO; -WARF1TAB2 PO
[2022-08-31 13:16] VITALS: BP 121/64
== END 2022-08-31 14:57 | disposition home or self-care (01) ==
LOC: ER 12:34
DX: U07.1 COVID-19 (principal); R05.9 Cough, unspecified; R09.89 Other specified symptoms and signs involving the circulatory and respiratory systems; I48.91 Unspecified atrial fibrillation; E78.00 Pure hypercholesterolemia, unspecified; I10 Essential (primary) hypertension; J44.9 Chronic obstructive pulmonary disease, unspecified; F32.A Depression, unspecified; F17.200 Nicotine dependence, unspecified, uncomplicated; Z85.3 Personal history of malignant neoplasm of breast; Z90.710 Acquired absence of both cervix and uterus; Z95.0 Presence of cardiac pacemaker; Z72.89 Other problems related to lifestyle; Z88.8 Allergy status to other drugs, medicaments and biological substances; Z88.2 Allergy status to sulfonamides; Z79.899 Other long term (current) drug therapy
CPT/HCPCS: 71045; 87502; 87503; 87635; 99284; C9803